=== PATIENT | male | born 1950 | race Caucasian/White ===

== ENCOUNTER 2022-11-16 09:13 | Day surgery (SDC) | payer MEDICARE, OTHER ==
[~2022-11-16] VITALS: Ht 175.3 cm; Wt 93.9 kg
[~2022-11-16 09:13] MED LIST: ATENOLOL25 MG PO; BACTRIM DS1 TAB PO; CRESTOR20 MG PO; EC-81 ASPIRIN81 MG PO; NEXIUM40 M1 PO; PERCOCET 5/321 COMBO PO; PLAVIX75 MG PO; ROCEPHIN 22 GM/VIAL IJ; TRAMADOL HCL50 MG PO; UROXATRAL10 MG PO; VANTIN200 M1 PO
[2022-11-16 12:56] VITALS: BP 166/88
== END 2022-11-16 12:54 | disposition home or self-care (01) ==
LOC: ENDO 09:13 → ORM 13:10
PROVIDERS: ATTEND Internal Medicine Gastroenterology
PROC: 0DBK8ZX Excision of Ascending Colon, Via Natural or Artificial Opening Endoscopic, Diagnostic (ICD-10-PCS; principal; 2022-11-16)
PROC: 0DBL8ZX Excision of Transverse Colon, Via Natural or Artificial Opening Endoscopic, Diagnostic (ICD-10-PCS; 2022-11-16)
PROC: 0DBM8ZX Excision of Descending Colon, Via Natural or Artificial Opening Endoscopic, Diagnostic (ICD-10-PCS; 2022-11-16)
PROC: 0DB48ZX Excision of Esophagogastric Junction, Via Natural or Artificial Opening Endoscopic, Diagnostic (ICD-10-PCS; 2022-11-16)
PROC: 0DB78ZX Excision of Stomach, Pylorus, Via Natural or Artificial Opening Endoscopic, Diagnostic (ICD-10-PCS; 2022-11-16)
DX: K22.711 Barrett's esophagus with high grade dysplasia (principal); D12.2 Benign neoplasm of ascending colon; D12.4 Benign neoplasm of descending colon; D12.3 Benign neoplasm of transverse colon; K29.70 Gastritis, unspecified, without bleeding; K44.9 Diaphragmatic hernia without obstruction or gangrene; K64.8 Other hemorrhoids; K57.30 Diverticulosis of large intestine without perforation or abscess without bleeding